=== PATIENT | male | born 2000 | race Caucasian/White ===

== ENCOUNTER 2019-01-11 15:00 | Emergency (ER) | payer OTHER ==
--- NOTE | 2019-01-11 15:21 | EDM.PDOC ---
ED HPI GENERAL MEDICAL PROBLEM - General Chief Complaint: Laceration Stated Complaint: laceration Time Seen by Provider: 01/11/19 15:15 Source of Information: Reports: Patient, Family (Mother). Denies: Old Records ( No [facility] records available) History Limitations: Reports: No Limitations - History of Present Illness INITIAL COMMENTS - FREE TEXT/NARRATIVE: The patient was brought to the emergency room via private automobile by his mother for evaluation of a Workmen's Compensation injury, which occurred at about 15:00 hours this afternoon. The patient was cutting lettuce at [facility] when he accidentally cut his left thumb with a knife. He denies previous injury to this digit with patient rinsing out the laceration site with tap water prior to arrival. No other medications or treatment prior to arrival. He is right-handed. Last tetanus booster was at about age 11, which was confirmed by his mother during today's visit. No history of paresthesias, neurological deficits, or other complaints or injuries. No recent history of abdominal pain, nausea, fever, URI symptoms, etc. Onset: Today, Sudden Onset Date: 01/11/19 Onset Time: 15:00 Duration: Constant. No: Other Location: Reports: Upper Extremity, Left. Denies: Head, Face, Neck, Chest, Abdomen, Pelvis, Upper Extremity, Right, Lower Extremity, Left, Radiates to Quality: Reports: Ache, Throbbing Severity: Moderate Improves with: Reports: None Worsens with: Reports: None Context: Reports: Trauma (As above) Associated Symptoms: Denies: Confusion, Chest Pain, Cough, Diaphoresis, Fever/ Chills, Headaches, Loss of Appetite, Nausea/Vomiting, Shortness of Breath, Syncope, Weakness Treatments [employer]: Reports: Dressing(s), Other (see below) (As above) Left hand thumb Pain Score (Numeric/FACES): 5 - Related Data Allergies Allergy/AdvReac Type Severity Reaction Status Date / Time No Known Allergies Allergy Verified 01/11/19 15:05 Home Meds: Home Meds . [No Known Home Meds] 01/11/19 [History] Past Medical History HEENT History: Reports: Impaired Vision, Other (See Below) Other HEENT History: He wears glasses. Cardiovascular History: Reports: None. Denies: Arrhythmia, Heart Murmur, Hypertension, Syncope Musculoskeletal History: Reports: Fracture, Other (See Below) Other Musculoskeletal History: Left radioulnar fracture at age 7. Neurological History: Denies: Concussion, Head Trauma, Seizure - Past Surgical History Head Surgeries/Procedures: Reports: None HEENT Surgical History: Reports: None. Denies: Adenoidectomy, Myringotomy w Tube(s), Oral Surgery, Tonsillectomy Respiratory Surgical History: Reports: None GI Surgical History: Reports: None. Denies: Appendectomy, Hernia, Abdominal, Hernia, Inguinal, Hernia Repair/Other Male Surgical History: Reports: Circumcision, Other (See Below). Denies: Vasectomy Other Male Surgeries/Procedures: Circumcision as an . Endocrine Surgical History: Reports: None Neurological Surgical History: Reports: None Musculoskeletal Surgical History: Reports: None. Denies: Arthroscopic Procedure , ORIF, Shoulder Surgery Oncologic Surgical History: Reports: None Dermatological Surgical History: Reports: None Social & Family History - Tobacco Use Smoking Status *Q: Never Smoker Used Tobacco, but Quit: No Smoking Cessation Information Provided To Patient: No Second Hand Smoke Exposure: No Second Hand Smoke Education Provided: No - Living Situation & Occupation Living situation: Reports: with Family (Mother and 2 nephews) Occupation: Employed ([employer] in [place]. Plans to enter [employer] next year.) ED ROS GENERAL - Review of Systems Review Of Systems: ROS reveals no pertinent complaints other than HPI. ED EXAM, SKIN/RASH Exam: See Below Exam Limited By: No Limitations General Appearance: Alert, WD/WN, No Apparent Distress Head: Atraumatic, Normocephalic. No: Facial Swelling, Facial Tenderness, Sinus Tenderness Neck: Normal Inspection, Supple, Non-Tender, Full Range of Motion. No: Lymphadenopathy (L), Lymphadenopathy (R) Respiratory/Chest: No Respiratory Distress, Lungs Clear, Normal Breath Sounds, No Accessory Muscle Use, Chest Non-Tender. No: Pleural Rub, Retractions Cardiovascular: Normal Peripheral Pulses, Regular Rate, Rhythm, No Edema, No Gallop, No JVD, No Murmur, No Rub, Tachycardia (Resolved borderline tachycardia at time of exam). No: Gallop/S3, Gallop/S4, Friction Rub Peripheral Pulses: 2+: Radial (L), Radial (R) GI/Abdominal: Normal Bowel Sounds, Soft, Non-Tender, No Organomegaly, No Distention, No Abnormal Bruit, No Mass, Pelvis Stable. No: Guarding (Male) Exam: Deferred Rectal (Males) Exam: Deferred Back Exam: Normal Inspection, Full Range of Motion. No: CVA Tenderness (L), CVA Tenderness (R), Muscle Spasm Extremities: Normal Range of Motion, No Pedal Edema, Normal Capillary Refill, Other (1 cm in length avulsion injury over the tip of his left thumb with some moderate bleeding but no evidence of foreign body, deformity, crepitation, fracture, joint involvement, etc. Nailbed is normal.). No: Casey's Sign Neurological: Alert, Oriented, CN II-XII Intact, Normal Cognition, Normal Gait, Normal Reflexes, No Motor/Sensory Deficits Psychiatric: Normal Affect, Normal Mood Skin: Wound/Incision (Denudement injury as above) Location, Skin: Upper Extremity, Left Characteristics: Other (As above) Associated features: Tenderness Lymphatic: No Adenopathy Course - Vital Signs Last Recorded V/S: Last Vital Signs Temp 36.4 C 01/11/19 15:06 Pulse 100 01/11/19 15:16 Resp 18 01/11/19 15:06 BP 123/80 01/11/19 15:16 Pulse Ox 96 01/11/19 15:16 Vital Signs - 24 hr 01/11/19 01/11/19 15:06 15:16 Temperature [ 36.4 C Temporal] Pulse, 107 H 100 Peripheral [ Brachial] Respiratory 18 Rate Blood Pressure 145/82 H 123/80 [Right Upper Arm] O2 Sat by Pulse 98 96 Oximetry - Orders/Labs/Meds Orders: Active Orders 24 hr Category Date Time Status Vaccines to be Administered [RC] PER UNIT ROUTINE Care 01/11/19 15:30 Active Fingers Thumb Lt FA [CR] Stat Exams 01/11/19 15:23 Taken Obtain Past Medical Record [OM.PC] Routine Oth 01/11/19 15:21 Active Labs: None Meds: Medications Discontinued Medications Generic Name Dose Route Start Last Admin Trade Name Freq PRN Reason Stop Dose Admin Diphtheria/Tetanus/Acell Pertussis 0.5 ml 01/11/19 15:30 01/11/19 15:46 Adacel IM 01/11/19 15:31 0.5 ml .ONCE ONE Administration Neomycin/Polymyxin/Bacitracin 1 each 01/11/19 15:23 01/11/19 15:48 Triple Antibiotic Oint TOP 01/11/19 15:24 1 each ONETIME ONE Administration - Radiology Interpretation Free Text/Narrative:: X-rays of the left thumb, 3 views, shows no evidence of fracture, foreign body or dislocation, etc. Soft tissue injury noted. Departure - Departure Time of Disposition: 16:15 Disposition: Home, Self-Care 01 Condition: Good Clinical Impression: Laceration - Discharge Information *PRESCRIPTION DRUG MONITORING PROGRAM REVIEWED*: Not Applicable *COPY OF PRESCRIPTION DRUG MONITORING REPORT IN PATIENT EROS: Not Applicable Instructions: Laceration Care, Adult, [id number] Referrals: PCP,Unknown [Ordering Only Provider] - Forms: ED Department Discharge, ED Return to Work/School Form Additional Instructions: 1. Follow up with your regular provider in 10-14 days as needed, if symptoms persist. Bring these discharge instructions with you to that visit.. 2. Tylenol 650 mg by mouth every 4 hours and/or OTC ibuprofen 2-3 tabs by mouth every 6 hours with food as directed./needed. You may stagger these medications for 48-72 hours only, which essentially means that you are receiving a pain medication about every 2 hours. 3. Work excuse- See Form 4. Antibacterial soap wash/soak with subsequent antibacterial dressing such as Neosporin, etc. as directed 2 times per day until the wound or laceration site completely heals. Keep the area clean and dry with activity restrictions as discussed. Never use hydrogen peroxide for wound care. 5. Immediately after this visit verify that your cellular telephone's voicemail has been activated and is empty. Also verify that your home telephone 's answering machine is operating properly and has space to receive messages. Note that it is sometimes necessary for us to be able to contact you at a later date to discuss your medical care. 6. Please remember that we are ALWAYS here for you and want to answer any questions you may have. Feel free to call the hospital any time and we call you back [facility]. - Problem List & Annotations (1) Laceration SNOMED Code(s): 008954899 Code(s): NLY4465 - Status: Acute Priority: High Onset Date: 01/11/19 Annotation/Comment:: Secondary to denudement injury laceration is not amenable to laceration repair. Workmen's Compensation and work excuse forms were completed. Wound care, activity restrictions, etc. discussed. DTaP given with last tetanus booster at about age 11. Note some mild tachycardia and borderline elevated blood pressure likely secondary to his acute injury with no previous history of arrhythmia or hypertension. Observe for now. Note bleeding under good control without required cauterization, etc. at discharge. Chlorhexidine swab disinfection and Neosporin pressure dressing placed by the nurse prior to arrival. Otherwise symptomatic care as per discharge instructions. - Problem List Review Problem List Initiated/Reviewed/Updated: Yes - My Orders Last 24 Hours: My Active Orders 01/11/19 15:21 Obtain Past Medical Record [OM.PC] Routine 01/11/19 15:23 Fingers Thumb Lt FA [CR] Stat 01/11/19 15:30 Vaccines to be Administered [RC] PER UNIT ROUTINE - Assessment/Plan Last 24 Hours: My Active Orders 01/11/19 15:21 Obtain Past Medical Record [OM.PC] Routine 01/11/19 15:23 Fingers Thumb Lt FA [CR] Stat 01/11/19 15:30 Vaccines to be Administered [RC] PER UNIT ROUTINE Assessment:: As above Plan: As above. Extensive precautions were given to the patient and his mother, who are in agreement with the treatment plan. See Patient Instructions for further treatment and plan.
[2019-01-11] MEDS: Diphtheria,Pertussis(Acell),Tetanus Vaccine 0.5 ML SDV IM ONE (15:46)
[2019-01-11] MEDS: Bacitracin/Neomycin/Polymyxin B Oint 0.9 GM U/D Packet TOP ONE (15:48)
== END 2019-01-11 16:15 | disposition home or self-care (01) ==
LOC: LL.ED 15:00
DX: S61.012A Laceration without foreign body of left thumb without damage to nail, initial encounter (principal); Z23 Encounter for immunization; W26.0XXA Contact with knife, initial encounter
CPT/HCPCS: 73140-FA; 90471; 90715; 99283-25